=== PATIENT | female | born 1990 | race Caucasian/White ===

== ENCOUNTER 2017-09-26 05:26 | Inpatient (IN) ==
[2017-09-26] MEDS ORDERED: ACETAMINOPHEN 325 MG TABLET PO PRN ×2 (05:56→20:01)
[2017-09-26] MEDS ORDERED: MEPERIDINE 50 MG/1 ML VIAL IV PRN (05:56)
[2017-09-26] MEDS ORDERED: ONDANSETRON 4 MG/2 ML VIAL IV PRN ×2 (05:56→20:01)
[2017-09-26] MEDS ORDERED: OXYTOCIN/LR 20 UNIT/1,000 ML BAG IV SCH (06:00)
[2017-09-26] MEDS: LACTATED RINGERS 1,000 ML IV SCH ×3 (06:09→12:34)
[2017-09-26 06:23] LABS: Basophils % 0.5 % (0.0-0.8); Eosinophils # 0.2 10*3/uL (0.0-0.87); Eosinophils % 2.1 % (0.00-10.9); Hematocrit 34.3 VOL% (35.7-47.0); Hemoglobin 11.9 GM/DL (12.0-16.0); Immature Granulocytes % 1.1 %; Lymphocytes # 1.9 10*3/uL (1.4-4.0); Lymphocytes % 21.1 % (21.3-54.2); Mean Corpuscular HGB Conc 34.7 GM/DL (32-36); Mean Corpuscular Hemoglobin 31 PG (27-34); Mean Corpuscular Volume 89.6 FL (87-102); Mean Platelet Volume 11.7 FL (9.6-12.0); Monocytes # 0.6 10*3/uL (0.11-0.8); Monocytes % 6.3 % (1.7-12.7); Neutrophils % 68.9 % (38.7-73.9); Platelet Count 138 T/CUMM (130-400); Red Blood Count 3.83 MC/CUMM (3.8-5.5); Red Cell Distribution Width 13.2 % (9.3-17.3); White Blood Count 8.8 T/CUMM (4-12)
[2017-09-26 06:58] LABS: Albumin 2.6 G/DL (3.4-5.0); Bilirubin,Total 0.5 MG/DL (0.2-1.0); Osmolality,Calculated 268.8 MOS/KG (273-304); Potassium 3.6 MMOL/L (3.5-5.1); Total Protein 5.7 G/DL (6.4-8.3)
[2017-09-26] MEDS ORDERED: fentaNYL 2 MCG/ROPIV 0.2% EPID 150 ML EPIDURAL SCH (10:14)
[2017-09-26] MEDS ORDERED: ePHEDrine 50 MG/ML AMP IV PRN (10:14)
[2017-09-26] MEDS ORDERED: PROMETHAZINE 25 MG/1 ML VIAL IM ONE (10:14)
[2017-09-26] MEDS ORDERED: hydrOXYzine HCL 25 MG/1 ML VIAL IM PRN (10:14)
[2017-09-26] MEDS ORDERED: diphenhydrAMINE 50 MG/1 ML VIAL IV PRN ×2 (10:14)
[2017-09-26] MEDS ORDERED: ONDANSETRON 4 MG/2 ML VIAL IV ONE (10:14)
[2017-09-26] MEDS ORDERED: CITRIC ACID/SODIUM CITRATE 30 ML UDCUP PO ONE (10:14)
[2017-09-26] MEDS ORDERED: FAMOTIDINE 20 MG/2 ML VIAL IV ONE (10:14)
[2017-09-26] MEDS ORDERED: fentaNYL 2 MCG/ROPIV 0.2% EPID 150 ML EPIDURAL ONE (10:22)
[2017-09-26 16:43] LABS: Apearance,Urine Slightly Hazy (Clear); Bilirubin,Urine Negative (Negative); Blood, Urine Negative (Negative); Glucose,Urine (UA) Negative (Negative); Ketones,Urine 80 mg/dL (Negative); Mucus,Urine Many /LPF (Occasional); Nitrite,Urine Negative (Negative); Protein,Urine 100 MG/DL; RBC,Urine 3 /HPF (0-4); Squamous Epithelial Cell,Urine Occasional /HPF (0-10); Urine Specific Gravity 1.023 (1.001-1.035); Urine Urobilinogen < 2.0 EU/DL (0.2-1.0); WBC,Urine 5 /HPF (0-6)
[2017-09-26 16:44] LABS: Urine Color Yellow (Yellow)
[2017-09-26] MEDS ORDERED: METHYLERGONOVINE 0.2 MG/1 ML AMP ONE (19:12)
[2017-09-26] MEDS ORDERED: miSOPROStol 200 MCG TABLET ONE (19:12)
[2017-09-26] MEDS ORDERED: CARBOPROST TROMETHAMINE 250 MCG/ML AMP IM ONE (19:12)
[2017-09-26] MEDS ORDERED: LIDOCAINE 1% 50 ML VIAL ONE (19:12)
[2017-09-26] MEDS ORDERED: OXYTOCIN/LR 30 UNIT/1,000 ML BAG IV ONE (19:14)
[2017-09-26] MEDS ORDERED: METHYLERGONOVINE 0.2 MG/1 ML AMP IM ONE (19:57)
[2017-09-26] MEDS ORDERED: BISACODYL 10 MG SUPP RECTAL PRN (20:01)
[2017-09-26] MEDS ORDERED: RHO(D) IMMUNE GLOBULIN 300 MCG SYRINGE IM ONE (20:01)
[2017-09-26] MEDS ORDERED: OXYTOCIN/LR 20 UNIT/1,000 ML BAG IV ONE (20:01)
[2017-09-26] MEDS ORDERED: BENZOCAINE 20%/MENTHOL 0.5% SPRAY 56 GM CAN TOP PRN (20:01)
[2017-09-26] MEDS ORDERED: WITCH HAZEL PADS 100/JAR TOP PRN (20:01)
[2017-09-26] MEDS ORDERED: LANOLIN 50% CREAM 0.3 OZ TUBE TOP PRN (20:01)
[2017-09-26] MEDS ORDERED: HYDROCORTISONE 2.5% RECTAL CREAM 30 GM TUBE TOP PRN (20:01)
[2017-09-26] MEDS ORDERED: DIPH/TET/ACEL PERT BOOSTER VACCINE 0.5 ML VIAL IM ONE (20:01)
[2017-09-26] MEDS ORDERED: MEASLES/MUMPS/RUBELLA VACCINE 0.5 ML VIAL SUBCUT ONE (20:01)
[2017-09-26] MEDS: IBUPROFEN 800 MG TABLET PO PRN (22:08)
[2017-09-26] MEDS: oxyCODONE/ACETAMINOPHEN 5-325 MG TABLET PO PRN (22:59)
[2017-09-27] MEDS: DOCUSATE SODIUM 100 MG CAPSULE PO SCH ×3 (01:05→20:22)
[2017-09-27 06:40] LABS: Basophils % 0.2 % (0.0-0.8); Eosinophils # 0.1 10*3/uL (0.0-0.87); Eosinophils % 0.4 % (0.00-10.9); Hematocrit 33.7 VOL% (35.7-47.0); Hemoglobin 11.8 GM/DL (12.0-16.0); Immature Granulocytes % 0.8 %; Lymphocytes # 0.9 10*3/uL (1.4-4.0); Lymphocytes % 7.3 % (21.3-54.2); Mean Corpuscular Hemoglobin 31 PG (27-34); Mean Corpuscular Volume 89.4 FL (87-102); Mean Platelet Volume 12.2 FL (9.6-12.0); Monocytes # 0.7 10*3/uL (0.11-0.8); Monocytes % 5.5 % (1.7-12.7); Neutrophils # 10.9 10*3/uL (1.4-7.4); Neutrophils % 85.8 % (38.7-73.9); Platelet Count 107 T/CUMM (130-400); Red Blood Count 3.77 MC/CUMM (3.8-5.5); White Blood Count 12.7 T/CUMM (4-12)
[2017-09-27] MEDS: oxyCODONE/ACETAMINOPHEN 5-325 MG TABLET PO PRN ×3 (07:36→21:12)
[2017-09-27] MEDS: IBUPROFEN 800 MG TABLET PO PRN ×2 (07:37→21:12)
[2017-09-28 07:29] VITALS: BP 112/88
[2017-09-28] MEDS: DOCUSATE SODIUM 100 MG CAPSULE PO SCH (08:53)
[2017-09-28] MEDS: IBUPROFEN 800 MG TABLET PO PRN (08:58)
[2017-09-28] MEDS: oxyCODONE/ACETAMINOPHEN 5-325 MG TABLET PO PRN (08:59)
== END 2017-09-28 10:50 | disposition home or self-care (01) | DRG 560 ==
LOC: N.LDOUT 05:26 → N.LD 05:31 → N.OB 21:50
PROVIDERS: ADMIT Obstetrics & Gynecology; ATTEND Obstetrics & Gynecology

== ENCOUNTER 2019-11-12 08:20 | Inpatient (IN) ==
[2019-11-12 08:57] LABS: Apearance,Urine CLEAR (Clear); Bacteria,Urine Occasional /HPF (Few); Bilirubin,Urine Negative (Negative); Blood, Urine Negative (Negative); Glucose,Urine (UA) Negative (Negative); Ketones,Urine 80 mg/dL (Negative); Mucus,Urine Occasional /LPF (Occasional); Nitrite,Urine Negative (Negative); Protein,Urine 30 MG/DL; RBC,Urine 2 /HPF (0-4); Squamous Epithelial Cell,Urine Occasional /HPF (0-10); Urine Color Yellow (Yellow); WBC,Urine <1 /HPF (0-6)
[2019-11-12] MEDS ORDERED: PROMETHAZINE 25 MG/1 ML VIAL IM ONE ×2 (10:35→13:15)
[2019-11-12] MEDS ORDERED: ONDANSETRON 4 MG/2 ML VIAL IV PRN ×2 (12:40→20:32)
[2019-11-12] MEDS ORDERED: BUTORPHANOL 2 MG/ML VIAL IV PRN (12:40)
[2019-11-12] MEDS ORDERED: MEPERIDINE 50 MG/1 ML VIAL IM PRN (12:40)
[2019-11-12 12:56] LABS: Basophils % 0.2 % (0.0-0.8); Hematocrit 37.5 VOL% (35.7-47.0); Hemoglobin 12.7 GM/DL (12.0-16.0); Immature Granulocytes % 0.9 %; Immature Granulocytes Absolute 0.11 #; Lymphocytes # 0.4 10*3/uL (1.4-4.0); Lymphocytes % 3.6 % (21.3-54.2); Mean Corpuscular HGB Conc 33.9 GM/DL (32-36); Mean Corpuscular Volume 91.5 FL (87-102); Mean Platelet Volume 11.9 FL (9.6-12.0); Monocytes % 3.3 % (1.7-12.7); Platelet Count 141 T/CUMM (130-400); Red Cell Distribution Width 13.4 % (9.3-17.3)
[2019-11-12] MEDS ORDERED: OXYTOCIN/LR 20 UNIT/1,000 ML BAG IV SCH (13:00)
[2019-11-12] MEDS ORDERED: LACTATED RINGERS 1,000 ML IV SCH (13:00)
[2019-11-12] MEDS ORDERED: CITRIC ACID/SODIUM CITRATE 30 ML UDCUP PO ONE (13:13)
[2019-11-12] MEDS ORDERED: LACTATED RINGERS 1,000 ML IV ONE (13:13)
[2019-11-12] MEDS ORDERED: FAMOTIDINE 20 MG/2 ML VIAL IV ONE (13:13)
[2019-11-12 13:15] LABS: Lymphocytes 4 % (20-55); Segmented Neutrophils 96 % (50-85); Total Cells Counted 100
[2019-11-12] MEDS ORDERED: hydrOXYzine HCL 25 MG/1 ML VIAL IM PRN (13:15)
[2019-11-12] MEDS ORDERED: NALOXONE 0.4 MG/ML VIAL IV PRN (13:15)
[2019-11-12] MEDS ORDERED: diphenhydrAMINE 50 MG/1 ML VIAL IV PRN ×2 (13:15)
[2019-11-12 13:16] LABS: Albumin 3.1 G/DL (3.4-5.0); Anisocytosis Slight; Bilirubin,Total 0.9 MG/DL (0.2-1.0); Calcium 8.3 MG/DL (8.5-10.1); Hypochromasia Slight; Osmolality,Calculated 271.7 MOS/KG (273-304); Platelet Estimate Adequate; Total Protein 6.7 G/DL (6.4-8.3); Uric Acid 3.6 MG/DL (2.6-6.0)
[2019-11-12] MEDS ORDERED: fentaNYL 2 MCG/ROPIV 0.2% EPID 100 ML EPIDURAL SCH (13:30)
[2019-11-12] MEDS: ePHEDrine 50 MG/ML AMP IV PRN ×3 (14:24→15:25)
[2019-11-12 16:36] LABS: Apearance,Urine CLEAR (Clear); Bacteria,Urine Occasional /HPF (Few); Bilirubin,Urine Negative (Negative); Blood, Urine Negative (Negative); Glucose,Urine (UA) Negative (Negative); Ketones,Urine 80 mg/dL (Negative); Mucus,Urine Moderate /LPF (Occasional); Nitrite,Urine Negative (Negative); Protein,Urine 30 MG/DL; Squamous Epithelial Cell,Urine Occasional /HPF (0-10); Transitional Epi Cells,Urine Occasional /HPF (<1); Urine Color Amber (Yellow); Urine Specific Gravity 1.028 (1.001-1.035); Urine Urobilinogen < 2.0 EU/DL (0.2-1.0)
[2019-11-12] MEDS ORDERED: METHYLERGONOVINE 0.2 MG/1 ML AMP ONE (20:03)
[2019-11-12] MEDS ORDERED: miSOPROStoL 200 MCG TABLET ONE (20:03)
[2019-11-12] MEDS ORDERED: RHO(D) IMMUNE GLOBULIN 300 MCG SYRINGE IM ONE (20:32)
[2019-11-12] MEDS ORDERED: HYDROCORTISONE 2.5% RECTAL CREAM 30 GM TUBE TOP PRN (20:32)
[2019-11-12] MEDS ORDERED: OXYTOCIN/LR 20 UNIT/1,000 ML BAG IV ONE (20:32)
[2019-11-12] MEDS ORDERED: oxyCODONE/ACETAMINOPHEN 5-325 MG TABLET PO PRN (20:32)
[2019-11-12] MEDS ORDERED: DIPH/TET/ACEL PERT BOOSTER VACCINE 0.5 ML VIAL IM ONE (20:32)
[2019-11-12] MEDS ORDERED: BENZOCAINE 20%/MENTHOL 0.5% SPRAY 56 GM CAN TOP PRN (20:32)
[2019-11-12] MEDS ORDERED: MEASLES/MUMPS/RUBELLA VACCINE 0.5 ML VIAL SUBCUT ONE (20:32)
[2019-11-12] MEDS ORDERED: ACETAMINOPHEN 325 MG TABLET PO PRN (20:32)
[2019-11-12] MEDS ORDERED: BISACODYL 10 MG SUPP RECTAL PRN (20:32)
[2019-11-12] MEDS ORDERED: WITCH HAZEL PADS 100/JAR TOP PRN (20:32)
[2019-11-12] MEDS ORDERED: LANOLIN 50% CREAM 0.3 OZ TUBE TOP PRN (20:32)
[2019-11-13] MEDS: DOCUSATE SODIUM 100 MG CAPSULE PO SCH ×3 (00:42→20:22)
[2019-11-13 05:37] LABS: Basophils % 0.3 % (0.0-0.8); Eosinophils % 0.1 % (0.00-10.9); Immature Granulocytes Absolute 0.09 #; Lymphocytes # 0.9 10*3/uL (1.4-4.0); Mean Corpuscular HGB Conc 34.2 GM/DL (32-36); Mean Corpuscular Volume 90.1 FL (87-102); Mean Platelet Volume 12.6 FL (9.6-12.0); Monocytes % 6.1 % (1.7-12.7); Neutrophils % 82.5 % (38.7-73.9); Platelet Count 117 T/CUMM (130-400); Red Blood Count 3.44 MC/CUMM (3.8-5.5); Red Cell Distribution Width 13.5 % (9.3-17.3); White Blood Count 9.2 T/CUMM (4-12)
[2019-11-13 05:56] LABS: Hemoglobin 10.6 GM/DL (12.0-16.0)
[2019-11-13] MEDS: oxyCODONE/ACETAMINOPHEN 5-325 MG TABLET PO PRN (14:22)
[2019-11-13] MEDS: IBUPROFEN 800 MG TABLET PO PRN (14:22)
[2019-11-14 07:22] VITALS: BP 94/60
[2019-11-14] MEDS: oxyCODONE/ACETAMINOPHEN 5-325 MG TABLET PO PRN (07:59)
[2019-11-14] MEDS: IBUPROFEN 800 MG TABLET PO PRN (07:59)
[2019-11-14] MEDS: DOCUSATE SODIUM 100 MG CAPSULE PO SCH (08:19)
== END 2019-11-14 11:55 | disposition home or self-care (01) | DRG 560 ==
LOC: N.LDOUT 08:20 → N.LD 08:21 → N.OB 23:53
PROVIDERS: ADMIT Obstetrics & Gynecology; ATTEND Obstetrics & Gynecology